=== PATIENT | female | born 1990 | race Caucasian/White ===

== ENCOUNTER 2019-02-27 02:03 | Emergency (ER) | payer SELFPAY ==
[~2019-02-27] VITALS: Ht 180.3 cm; Wt 86.2 kg
[~2019-02-27 02:03] MED LIST: HYDR-3063 PO
[2019-02-27] MEDS ORDERED: NS IV 1000 ML 1,000 ML IV SCH (02:07)
[2019-02-27] MEDS ORDERED: RT-ALBUTEROL SULF 2.5 MG/3 ML PRE-MIX VIAL INH STA (02:07)
[2019-02-27 02:17] LABS: BASOPHILS # (AUTO) 0.1 10^3/uL (0.0-0.1); BASOPHILS % (AUTO) 0 % (0-10); EOSINOPHILS # (AUTO) 0.5 10^3/uL (0.0-0.3); EOSINOPHILS % (AUTO) 4 % (0-10); HEMATOCRIT 41 % (35-52); LYMPHOCYTES # (AUTO) 4.6 X 10^3 (1.0-4.0); LYMPHOCYTES % (AUTO) 37 % (12-44); MEAN CORPUSCULAR HEMOGLOBIN 30 PG (25-34); MEAN CORPUSCULAR HGB CONC 34 G/DL (32-36); MEAN CORPUSCULAR VOLUME 88 FL (80-99); MEAN PLATELET VOLUME 11.5 FL (7.4-10.4); MONOCYTES # (AUTO) 1.2 X 10^3 (0.0-1.0); MONOCYTES % (AUTO) 10 % (0-12); NEUTROPHILS # (AUTO) 6.2 X 10^3 (1.8-7.8); NEUTROPHILS % (AUTO) 50 % (42-75); PLATELET COUNT 212 10^3/uL (130-400); RED CELL DISTRIBUTION WIDTH 13.5 % (10.0-14.5); WHITE BLOOD COUNT 12.5 10^3/uL (4.3-11.0)
--- NOTE | 2019-02-27 02:26 | ED Respiratory ---
General Chief Complaint: Respiratory Problems Stated Complaint: SOB Nursing Triage Note: Patient awoke from sleeping tonight feeling diaphoretic and experiencing difficulty breathing. Source: patient, EMS Exam Limitations: no limitations History of Present Illness Date Seen by Provider: Feb 27, 2019 Time Seen by Provider: 02:09 Initial Comments The patient presents to the ER by EMS with chief complaint that she was awoken tonight with shortness of breath wheezing coughing. For the Past week she's been having some respiratory symptoms and went to [facility] and was given Tessalon Perles and prednisone. He is not using the Tessalon Perles last 2 days because they do not help. She finished the prednisone with no improvement. She's had no fevers or chills and a nonproductive cough. No history of asthma/COPD although she is a half to one pack of cigarettes per day smoker. No pain. She was given a DuoNeb on route by EMS which greatly improved her breathing and breath sounds. Oxygen sats were in the mid-90s when EMS picked her up. She does have an implanted control in her left arm. 0205 Solu-Medrol 125 mg IV was given by EMS. Allergies and Home Medications Allergies Coded Allergies: Penicillins (Unverified Allergy, Unknown, HIVES, 12/22/14) Home Medications Hydrocodone Bit/Acetaminophen 1 Each Tablet, 1-2 EACH PO Q6H PRN for p Prescribed by: STEPHANIE WORRELL MD on 12/29/14 0985 Patient Home Medication List Home Medication List Reviewed: Yes Review of Systems Review of Systems Constitutional: No chills, No diaphoresis EENTM: No ear discharge, No hearing loss, No ear pain, No eye pain, No tearing Respiratory: cough, short of breath; No stridor; wheezing Cardiovascular: No chest pain, No edema, No palpitations Gastrointestinal: No abdominal pain, No nausea, No vomiting Genitourinary: No discharge, No dysuria Musculoskeletal: No back pain, No joint pain Past Leluued-Gghyrv-Qnwfwd Hx Patient Social History Alcohol Use: Denies Use Recreational Drug Use: No Smoking Status: Current Everyday Smoker Recent Foreign Travel: No Contact w/Someone Who Travel: No Recent Infectious Disease Expo: No Recent Hopitalizations: No Seasonal Allergies Seasonal Allergies: No Past Medical History Surgeries: Yes Orthopedic Respiratory: No Cardiac: No Neurological: No Reproductive Disorders: No Genitourinary: No Gastrointestinal: No Musculoskeletal: No Endocrine: No Loss of Vision: Left Hearing Impairment: Denies Cancer: No Psychosocial: No Integumentary: No Blood Disorders: No Physical Exam Vital Signs - First Documented 02/27/19 02:08 Temp 97.6 Pulse 95 Resp 14 B/P (MAP) 113/81 (92) Pulse Ox 100 O2 Delivery Room Air Capillary Refill : Less Than 3 Seconds Height: 5'11.00" Weight: 190lbs. oz. 86.807322tr; BMI Method:Stated General Appearance: WD/WN, no apparent distress Eyes: Bilateral Eye Normal Inspection, Bilateral Eye PERRL, Bilateral Eye EOMI HEENT: PERRL/EOMI, normal ENT inspection, TMs normal; No pharynx normal (mildly dry) Neck: non-tender, full range of motion, supple, normal inspection Respiratory: chest non-tender, no accessory muscle use, respiratory distress (mild) Cardiovascular: normal peripheral pulses (89), regular rate, rhythm, no edema Gastrointestinal: normal bowel sounds, non tender, soft Focused Exam Lactate Level 02/27/19 02:45: Lactic Acid Level 0.96 Lactic Acid Level Laboratory Tests Test 02/27/19 02:45 Lactic Acid Level 0.96 MMOL/L (0.50-2.00) Progress/Results/Core Measures Suspected Sepsis Recent Fever Within 48 Hours: No Infection Criteria Present: None New/Unexplained Altered Menta: No Sepsis Screen: No Definite Risk SIRS Temperature:97.6 Pulse: 95 Respiratory Rate: 14 Laboratory Tests 02/27/19 02:08: White Blood Count 12.5H Blood Pressure 113 /81 Mean: 92 02/27/19 02:45: Lactic Acid Level 0.96 Laboratory Tests 02/27/19 02:08: Creatinine 0.85, Platelet Count 212, Total Bilirubin 0.3 Results/Orders Lab Results Laboratory Tests Test 02/27/19 02:08 02/27/19 02:45 Range/Units White Blood Count 12.5 H 4.3-11.0 10^3/uL Red Blood Count 4.70 4.35-5.85 10^6/uL Hemoglobin 14.0 11.5-16.0 G/DL Hematocrit 41 35-52 % Mean Corpuscular Volume 88 80-99 FL Mean Corpuscular Hemoglobin 30 25-34 PG Mean Corpuscular Hemoglobin Concent 34 32-36 G/DL Red Cell Distribution Width 13.5 10.0-14.5 % Platelet Count 212 130-400 10^3/uL Mean Platelet Volume 11.5 H 7.4-10.4 FL Neutrophils (%) (Auto) 50 42-75 % Lymphocytes (%) (Auto) 37 12-44 % Monocytes (%) (Auto) 10 0-12 % Eosinophils (%) (Auto) 4 0-10 % Basophils (%) (Auto) 0 0-10 % Neutrophils # (Auto) 6.2 1.8-7.8 X 10^3 Lymphocytes # (Auto) 4.6 H 1.0-4.0 X 10^3 Monocytes # (Auto) 1.2 H 0.0-1.0 X 10^3 Eosinophils # (Auto) 0.5 H 0.0-0.3 10^3/uL Basophils # (Auto) 0.1 0.0-0.1 10^3/uL Sodium Level 140 135-145 MMOL/L Potassium Level 3.9 3.6-5.0 MMOL/L Chloride Level 107 98-107 MMOL/L Carbon Dioxide Level 21 21-32 MMOL/L Anion Gap 12 5-14 MMOL/L Blood Urea Nitrogen 12 7-18 MG/DL Creatinine 0.85 0.60-1.30 MG/DL Estimat Glomerular Filtration Rate > 60 BUN/Creatinine Ratio 14 Glucose Level 95 70-105 MG/DL Calcium Level 9.2 8.5-10.1 MG/DL Corrected Calcium 9.1 8.5-10.1 MG/DL Magnesium Level 2.0 1.8-2.4 MG/DL Total Bilirubin 0.3 0.1-1.0 MG/DL Aspartate Amino Transf (AST/SGOT) 18 5-34 U/L Alanine Aminotransferase (ALT/SGPT) 19 0-55 U/L Alkaline Phosphatase 62 40-136 U/L C-Reactive Protein High Sensitivity 1.06 H 0.00-0.50 MG/DL Total Protein 6.5 6.4-8.2 GM/DL Albumin 4.1 3.2-4.5 GM/DL Lactic Acid Level 0.96 0.50-2.00 MMOL/L My Orders Orders - STACIE ADDISON Chest Pa/Lat (2 View) (02/27/19 02:07) Cbc With Automated Diff (02/27/19 02:07) Comprehensive Metabolic Panel (02/27/19 02:07) Hs C Reactive Protein (02/27/19 02:07) Magnesium (02/27/19 02:07) Blood Culture (02/27/19 02:07) Sputum Culture (02/27/19 02:07) Ed Iv/Invasive Line Start (02/27/19 02:07) Ns Iv 1000 Ml (Sodium Chloride 0.9%) (02/27/19 02:07) Lactic Acid Analyzer (02/27/19 02:07) Albuterol Pre-Mix Nebs (Rt) (Proventil (02/27/19 02:07) Vital Signs/I&O 02/27/19 02/27/19 02:08 02:14 Temp 97.6 Pulse 95 Resp 14 B/P (MAP) 113/81 (92) Pulse Ox 100 97 O2 Delivery Room Air Room Air Capillary Refill : Less Than 3 Seconds Blood Pressure Mean: 92 Progress Note #1: Time: 02:24 Progress Note The patient is much improved after a DuoNeb based on report from EMS. We'll give her another 2.5 mg of albuterol get a 2 view chest x-ray labs, blood and sputum culture, lactate. Bronchitis versus pneumonia with reactive airway component. Progress Note #2: Time: 03:40 Progress Note The patient is feeling much better after breathing treatments. Plan to put the her on another course of steroids at some azithromycin for its anti-inflammatory properties and treat her outpatient for bronchitis. Diagnostic Imaging Diagonstic Imaging: Xray Plain Films/CT/US/NM/MRI: chest (2v) Comments No acute cardio pulmonary infiltrates or processes. Reviewed: Reviewed by Me Departure Impression Primary Impression: Bronchitis Disposition: 01 HOME, SELF-CARE Condition: Improved Departure-Patient Inst. Decision time for Depature: 03:40 Referrals: TOY JENKINS MD (PCP) Primary Care Physician Patient Instructions: Acute Bronchitis, Adult (DC) Add. Discharge Instructions: Drink plenty of fluids. If you have coughing wheezing or shortness of breath take 2 puffs of the albuterol through the spacer every 4 hours as needed. For the next week you should take 2 puffs of albuterol with a spacer every 6 hours [id number]. manager group the steroids and take one tablet twice a day with food. manager group the azithromycin and start taking 1 tablet daily for the next 4 days. Follow-up with your primary care doctor for reexamination in one week. All discharge instructions reviewed with patient and/or family. Voiced understanding. Scripts Azithromycin (Azithromycin) 250 Mg Tablet 250 MG PO DAILY, #4 TAB 0 Refills Prov: STACIE ADDISON 02/27/19 Prednisone (Prednisone) 20 Mg Tab 20 MG PO BID for 5 Days, #10 TAB 0 Refills Prov: STACIE ADDISON 02/27/19 Work/School Note: Work Release Form Date Seen in the Emergency Department: Feb 27, 2019 Return to Work: Feb 28, 2019 Restrictions: No Restrictions STACIE ADDISON Feb 27, 2019 02:26
[2019-02-27 02:35] LABS: ALANINE AMINOTRANSFERASE 19 U/L (0-55); ALBUMIN 4.1 GM/DL (3.2-4.5); ALKALINE PHOSPHATASE 62 U/L (40-136); BILIRUBIN,TOTAL 0.3 MG/DL (0.1-1.0); BUN/CREATININE RATIO 14; CALCIUM 9.2 MG/DL (8.5-10.1); CARBON DIOXIDE 21 MMOL/L (21-32); CHLORIDE 107 MMOL/L (98-107); CREATININE SERUM 0.85 MG/DL (0.60-1.30); GFR ESTIMATED > 60; GLUCOSE 95 MG/DL (70-105); POTASSIUM 3.9 MMOL/L (3.6-5.0); SODIUM 140 MMOL/L (135-145); TOTAL PROTEIN 6.5 GM/DL (6.4-8.2)
[2019-02-27] MEDS ORDERED: AZIT250T12 PO (03:42)
[2019-02-27] MEDS ORDERED: PRD20T PO (03:42)
[2019-02-27] MEDS ORDERED: predniSONE 20 MG TAB PO ONE (03:45)
[2019-02-27 03:48] VITALS: BP 102/55
--- NOTE | 2019-02-27 06:58 | Diagnostic Imaging Report ---
INDICATION: Shortness of air, cough and congestion. EXAMINATION: Two-view chest on 02/27/2019. COMPARISONS: None FINDINGS: The cardiomediastinal silhouette is unremarkable. The pulmonary vasculature is within normal limits. The lungs and pleural spaces are clear. IMPRESSION: No evidence of an acute cardiopulmonary process. Dictated by: Dictated on workstation # [id number]
== END 2019-02-27 04:00 | disposition home or self-care (01) ==
LOC: EDUNIT# 02:03 → MERGE 02:05 → UNMERGE 02:05 → ER 02:05
DX: J40 Bronchitis, not specified as acute or chronic (principal); F17.210 Nicotine dependence, cigarettes, uncomplicated; Z88.0 Allergy status to penicillin
CPT/HCPCS: 36415; 71046; 80053; 83605; 83735; 85025; 86141; 87040; 94640; 96360

== ENCOUNTER 2019-04-04 10:42 | Emergency (ER) | payer SELFPAY ==
[~2019-04-04] VITALS: Ht 165.1 cm; Wt 81.6 kg
[~2019-04-04 10:42] MED LIST changes: +AZIT250T12 PO; +PRD20T PO
[2019-04-04] MEDS ORDERED: methylPREDNISolone 125 MG (Solu-MEDROL) VIAL ONE (10:44)
[2019-04-04] MEDS ORDERED: RT-ALBUTEROL/IPRATROPIUM 3 ML (DUONEB) VIAL ONE (10:54)
[2019-04-04] MEDS ORDERED: RT-ALBUTEROL SULF 2.5 MG/3 ML PRE-MIX VIAL ONE ×2 (10:54→11:49)
[2019-04-04] MEDS ORDERED: NS IV 1000 ML 1,000 ML ONE ×2 (11:13→11:54)
[2019-04-04] MEDS ORDERED: PROPOFOL DRIP (ICU) 100 ML IV ONE (11:13)
[2019-04-04 11:16] LABS: ABG PCO2 > 115 MMHG (35-45); ABG PH 6.84 (7.37-7.43)
[2019-04-04 11:17] LABS: ABG PO2 187 MMHG (79-93); INSPIRED O2 15L; PATIENT TEMP 99.1; VENTILATOR YES
--- NOTE | 2019-04-04 11:21 | Diagnostic Imaging Report ---
INDICATION: Unresponsive. Time of exam: 11:10 AM No prior studies are available for comparison. The heart size is normal. Endotracheal tube has its tip in good position above the odilon. Lungs appear to be fairly clear. No failure is seen. No effusion or pneumothorax is identified. IMPRESSION: Satisfactory endotracheal tube placement. Dictated by: Dictated on workstation # [id number]
[2019-04-04 11:27] LABS: BASOPHILS # (AUTO) 0.2 10^3/uL (0.0-0.1); BASOPHILS % (AUTO) 1 % (0-10); EOSINOPHILS # (AUTO) 1.8 10^3/uL (0.0-0.3); EOSINOPHILS % (AUTO) 6 % (0-10); HEMATOCRIT 45 % (35-52); HEMOGLOBIN 13.6 G/DL (11.5-16.0); LYMPHOCYTES # (AUTO) 7.6 X 10^3 (1.0-4.0); LYMPHOCYTES % (AUTO) 23 % (12-44); MEAN CORPUSCULAR HEMOGLOBIN 30 PG (25-34); MEAN CORPUSCULAR HGB CONC 30 G/DL (32-36); MEAN CORPUSCULAR VOLUME 98 FL (80-99); MEAN PLATELET VOLUME 12.6 FL (7.4-10.4); MONOCYTES # (AUTO) 3.1 X 10^3 (0.0-1.0); MONOCYTES % (AUTO) 10 % (0-12); NEUTROPHILS # (AUTO) 19.5 X 10^3 (1.8-7.8); NEUTROPHILS % (AUTO) 60 % (42-75); PLATELET COUNT 271 10^3/uL (130-400); RED CELL DISTRIBUTION WIDTH 13.1 % (10.0-14.5); WHITE BLOOD COUNT 32.5 10^3/uL (4.3-11.0)
[2019-04-04] MEDS ORDERED: cefTRIAXone 1,000 MG IV (ROCEPHIN) VIAL ONE (11:28)
[2019-04-04 11:29] LABS: INR 1.1 (0.8-1.4); PROTHROMBIN TIME PATIENT 14.5 SEC (12.2-14.7)
[2019-04-04] MEDS ORDERED: NS (IVPB) 100 ML ONE (11:29)
--- NOTE | 2019-04-04 11:30 | NUR ---
[facility] declinded transfer, because they were already on transfer and had a call. [facility] requested that [facility] be contacted, before they accepted transfer. [facility] accepted transfer and would be here in 30 minutes.
[2019-04-04] MEDS ORDERED: KETAMINE HCL 100 MG/ML 5 ML VIAL IJ ONE (11:33)
[2019-04-04] MEDS ORDERED: ROCURONIUM 10 MG/ML 5 ML SYRINGE IV ONE ×2 (11:33→12:30)
[2019-04-04] MEDS ORDERED: SODIUM BICARB 8.4% 50 MEQ/50 ML (ABBOTT) SYR INJ ONE (11:33)
[2019-04-04 11:37] LABS: BAND NEUTROPHILS 6 %; BASOPHILS % (MANUAL) 0 %; EOSINOPHILS % (MANUAL) 5 %; LYMPHOCYTES % (MANUAL) 24 %; MONOCYTES % (MANUAL) 10 %; NEUTROPHILS % (MANUAL) 55 %; RBC MORPH NORMAL
[2019-04-04 11:47] LABS: CARBON DIOXIDE 19 MMOL/L (21-32); CHLORIDE 100 MMOL/L (98-107); POTASSIUM 5.5 MMOL/L (3.6-5.0); SODIUM 144 MMOL/L (135-145)
[2019-04-04 11:48] LABS: ALANINE AMINOTRANSFERASE 21 U/L (0-55); ALBUMIN 4.6 GM/DL (3.2-4.5); ALKALINE PHOSPHATASE 59 U/L (40-136); BILIRUBIN,TOTAL 0.4 MG/DL (0.1-1.0); BUN/CREATININE RATIO 10; CALCIUM 10.4 MG/DL (8.5-10.1); CREATININE SERUM 0.93 MG/DL (0.60-1.30); GFR ESTIMATED > 60; GLUCOSE 133 MG/DL (70-105); LIPASE 12 U/L (8-78); MAGNESIUM 2.4 MG/DL (1.8-2.4); TOTAL PROTEIN 7.5 GM/DL (6.4-8.2)
[2019-04-04 11:55] LABS: BILIRUBIN,URINE NEGATIVE (NEGATIVE); CLARITY,URINE CLEAR; COLOR,URINE YELLOW; GLUCOSE, URINE (UA) NEGATIVE (NEGATIVE); KETONES,URINE NEGATIVE (NEGATIVE); LEUKOCYTE ESTERASE ,URINE NEGATIVE (NEGATIVE); NITRITE,URINE NEGATIVE (NEGATIVE); PROTEIN,URINE NEGATIVE (NEGATIVE); SQUAMOUS EPITHELIAL CELL,UR RARE /HPF; UROBILINOGEN,URINE 0.2 MG/DL (NORMAL)
[2019-04-04] MEDS ORDERED: MAGNESIUM SULFATE 1 GM/2 ML VIAL ONE ×2 (11:55→11:56)
--- NOTE | 2019-04-04 11:55 | NUR ---
arrived and decided he wanted her to go to [facility] in [place], because of bad experiences in [place]. Dr. Burt decided he wanted to fly patient. [facility] was contacted about cancelling transfer, due to patient going to [facility].
[2019-04-04] MEDS ORDERED: MAGNESIUM 1 GM/100 ML IVPB 200 ML IV ONE (11:57)
--- NOTE | 2019-04-04 12:00 | NUR ---
[facility] was contacted. [facility] out of [place] was unable to respond. Asked if we wanted to contact [facility], I said yes. They said they could respond and had ETA of 28 minutes. I notified them if they could go ahead and respond. I notified her I would contact [facility] and see if they could be here quicker and she stated that is perfectly fine and if they could to contact her and she will cancel crew.
--- NOTE | 2019-04-04 12:03 | NUR ---
[facility] was contacted and accepted flight with ETA of 21 minutes. [facility] was called and cancelled.
[2019-04-04 12:06] LABS: HCG,QUALITATIVE URINE NEGATIVE (NEGATIVE)
--- NOTE | 2019-04-04 12:10 | ED General ---
General Chief Complaint: Unresponsive Stated Complaint: SOB Nursing Triage Note: PT BROUGHT IN BY POV AND GOT IN WHEELCHAIR. PTS LIPS WERE BLUE AND HER FACE WAS ASHY WITH OBVIOUS RESPIRATORY DISTRESS. PT STOPPED BREATHING WITHIN 30 SECONDS OF BEING PLACED ON THE COT. Nursing Sepsis Screen: Possible Sepsis Risk History of Present Illness Date Seen by Provider: Apr 04, 2019 Time Seen by Provider: 12:01 Initial Comments Patient brought in by friend in respiratory extremis says she is cyanotic and has respiratory rate at approximate 4. We started bagging the patient and hooked up to the monitor and O2 saturation was in the 40s. We were able to bag her up into the 90s. To get further information we had several classmates of the patient's come into the room and give us additional information. 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 She reported he had not been feeling well over the past several days w ith increased fatigue and cough and relayed that he actually did go to [facility] emergency department 3 or 4 days ago and received treatments but no steroids. While in class patient started coughing and became very short of breath to the point she turned blue and a classmate drove her here to the emergency department. Patient was intubated after getting her O2 saturations up into the upper 90s. She did seem to try an over breathe the bagging slightly however she could make no purposeful sounds or movements. She was intubated with ketamine and rocuronium. She was given steroids as well as IV fluids and started on propofol. I spoke to Dr. Barron of pulmonary at [facility] and he recommended giving 2 A of bicarbonate and giving antibiotics if she has leukocytosis. She was given 2 g of Rocephin and she does have a white count of 32. Dr. Barron also recommended I change her respiratory rate to 24 from 20 and in addition to increase her tidal volume to 440 from 400 as well as decrease her PEEP to 5 from 10. She is on an FiO2 of 100. She was also given magnesium. I had an accepting physician at [facility] with Dr. Gonzalez. However patient's arrived and stated that he would not allow her to go to [facility] as she was just in the emergency room there and he does not trust them. I tried explained to him that the closest facility would be the best and safest opportunity for complete recovery for her and I would not base his decision off of the emergency department care as there will be different physicians and specialists involved. He verbalized understanding of this fact but said that he would never have her go to [facility] and is refusing transferred to [facility] and requested that I transfer her to [facility] in [place]. I spoke to Dr. Anderson at [facility] and he agreed to accept patient in transfer. Allergies and Home Medications Allergies Coded Allergies: Penicillins (Verified Allergy, Unknown, HIVES, 04/04/19) Home Medications Azithromycin 250 Mg Tablet, 250 MG PO DAILY Prescribed by: STACIE ADDISON on 02/27/19 034 Hydrocodone Bit/Acetaminophen 1 Each Tablet, 1-2 EACH PO Q6H PRN for p Prescribed by: STEPHANIE WORRELL MD on 12/29/14 0925 Prednisone 20 Mg Tab, 20 MG PO BID Prescribed by: STACIE ADDISON on 02/27/19 034 Patient Home Medication List Home Medication List Reviewed: Yes Review of Systems Review of Systems Constitutional: no symptoms reported All Other Systems Reviewed Negative Unless Noted: Yes (can't obtain due to condition) Past Wzosonx-Zlhkoh-Iidezv Hx Patient Social History Alcohol Use: Denies Use Recreational Drug Use: No Smoking Status: Current Everyday Smoker Type Used: Cigarettes 2nd Hand Smoke Exposure: No Recent Foreign Travel: No Contact w/Someone Who Travel: No Recent Infectious Disease Expo: No Recent Hopitalizations: No Seasonal Allergies Seasonal Allergies: Yes Past Medical History Surgeries: Yes (KNEES BILAT) Orthopedic Respiratory: Yes ( REPORTS THEY WERE TOLD SHE HAS ALLERGIES/ASTHMA) Asthma Cardiac: No Neurological: No Genitourinary: No Gastrointestinal: No Musculoskeletal: No Endocrine: No HEENT: No Cancer: No Psychosocial: No Integumentary: No Blood Disorders: No Physical Exam Vital Signs Vital Signs - First Documented 04/04/19 10:45 Temp 99.1 Pulse 141 Resp 38 B/P (MAP) 162/114 (130) Pulse Ox 58 O2 Delivery Room Air Capillary Refill : Greater Than 3 Seconds Height, Weight, BMI Height: 5'5.00" Weight: 180lbs. oz. 81.556983ns; BMI Method:Actual General Appearance: Other (severe respiratory distress with bradycardic pulse, cyanotic) Eyes: Bilateral Eye Other (6mm and minimally reactive BL) HEENT: Other (airway patent) Neck: Supple Respiratory: Other (diminished breath sounds with wheezing in all lung ruiz) Cardiovascular: Bradycardia Gastrointestinal: Soft Rectal: Deferred Back: Normal Inspection Extremity: Slow Capillary Refill Neurologic/Psychiatric: Other (no ability to speak) Skin: Cyanosis, Other Procedures/Interventions Reason for Intubation: resp failure Intubation Method: orotracheal Medications: Rocuronium (and ketamine) Positive End Tide CO2: Yes Breath Sounds after Intubation: bilateral-equal Intubation Complications: no complications Post Intubation Xray: Yes Progress/Results/Core Measures Suspected Sepsis Recent Fever Within 48 Hours: No Infection Criteria Present: Suspected New Infection New/Unexplained Altered Menta: No Sepsis Screen: Possible Sepsis Risk SIRS Temperature:99.1 Pulse: 141 Respiratory Rate: 38 Laboratory Tests 04/04/19 11:05: White Blood Count 32.5*H Blood Pressure 162 /114 Mean: 130 Laboratory Tests 04/04/19 11:05: Creatinine 0.93, INR Comment 1.1, Platelet Count 271, Total Bilirubin 0.4 Results/Orders Lab Results Laboratory Tests Test 04/04/19 11:05 04/04/19 11:30 04/04/19 11:55 Range/Units White Blood Count 32.5 *H 4.3-11.0 10^3/uL Red Blood Count 4.57 4.35-5.85 10^6/uL Hemoglobin 13.6 11.5-16.0 G/DL Hematocrit 45 35-52 % Mean Corpuscular Volume 98 80-99 FL Mean Corpuscular Hemoglobin 30 25-34 PG Mean Corpuscular Hemoglobin Concent 30 L 32-36 G/DL Red Cell Distribution Width 13.1 10.0-14.5 % Platelet Count 271 130-400 10^3/uL Mean Platelet Volume 12.6 H 7.4-10.4 FL Neutrophils (%) (Auto) 60 42-75 % Lymphocytes (%) (Auto) 23 12-44 % Monocytes (%) (Auto) 10 0-12 % Eosinophils (%) (Auto) 6 0-10 % Basophils (%) (Auto) 1 0-10 % Neutrophils # (Auto) 19.5 H 1.8-7.8 X 10^3 Lymphocytes # (Auto) 7.6 H 1.0-4.0 X 10^3 Monocytes # (Auto) 3.1 H 0.0-1.0 X 10^3 Eosinophils # (Auto) 1.8 H 0.0-0.3 10^3/uL Basophils # (Auto) 0.2 H 0.0-0.1 10^3/uL Neutrophils % (Manual) 55 % Lymphocytes % (Manual) 24 % Monocytes % (Manual) 10 % Eosinophils % (Manual) 5 % Basophils % (Manual) 0 % Band Neutrophils 6 % Blood Morphology Comment NORMAL Prothrombin Time 14.5 12.2-14.7 SEC INR Comment 1.1 0.8-1.4 Activated Partial Thromboplast Time 25 24-35 SEC Blood Gas Puncture Site RT RAD Blood Gas Patient Temperature 99.1 Arterial Blood pH 6.84 *L 7.37-7.43 Arterial Blood Partial Pressure CO2 > 115 *H 35-45 MMHG Arterial Blood Partial Pressure O2 187 H 79-93 MMHG Arterial Blood HCO3 23-27 MMOL/L Arterial Blood Total CO2 21.0-31.0 MMOL/L Arterial Blood Oxygen Saturation 94-100 % Arterial Blood Base Excess -2.5-2.5 MMOL/L Facundo Test NA Blood Gas Ventilator Setting YES Blood Gas Inspired Oxygen 15L Sodium Level 144 135-145 MMOL/L Potassium Level 5.5 H 3.6-5.0 MMOL/L Chloride Level 100 98-107 MMOL/L Carbon Dioxide Level 19 L 21-32 MMOL/L Anion Gap 25 H 5-14 MMOL/L Blood Urea Nitrogen 9 7-18 MG/DL Creatinine 0.93 0.60-1.30 MG/DL Estimat Glomerular Filtration Rate > 60 BUN/Creatinine Ratio 10 Glucose Level 133 H 70-105 MG/DL Calcium Level 10.4 H 8.5-10.1 MG/DL Corrected Calcium 8.5-10.1 MG/DL Magnesium Level 2.4 1.8-2.4 MG/DL Total Bilirubin 0.4 0.1-1.0 MG/DL Aspartate Amino Transf (AST/SGOT) 30 5-34 U/L Alanine Aminotransferase (ALT/SGPT) 21 0-55 U/L Alkaline Phosphatase 59 40-136 U/L Troponin I < 0.30 <0.30 NG/ML Pro-B-Type Natriuretic Peptide 302.6 H <75.0 PG/ML Total Protein 7.5 6.4-8.2 GM/DL Albumin 4.6 H 3.2-4.5 GM/DL Lipase 12 8-78 U/L Serum Alcohol < 10 <10 MG/DL Urine Color YELLOW Urine Clarity CLEAR Urine pH 6.0 5-9 Urine Specific [place] 1.010 L 1.016-1.022 Urine Protein NEGATIVE NEGATIVE Urine Glucose (UA) NEGATIVE NEGATIVE Urine Ketones NEGATIVE NEGATIVE Urine Nitrite NEGATIVE NEGATIVE Urine Bilirubin NEGATIVE NEGATIVE Urine Urobilinogen 0.2 NORMAL MG/DL Urine Leukocyte Esterase NEGATIVE NEGATIVE Urine RBC (Auto) NEGATIVE NEGATIVE Urine RBC NONE /HPF Urine WBC NONE /HPF Urine Squamous Epithelial Cells RARE /HPF Urine Crystals NONE /LPF Urine Bacteria NONE /HPF Urine Casts NONE /LPF Urine Mucus NEGATIVE /LPF Urine Culture Indicated NO My Orders Orders - KAREN JIANG DO Methylprednisolone Sod Succ (Solu-Medrol (04/04/19 10:44) Albuterol/Ipra Inhalation Soln (Duoneb I (04/04/19 10:54) Albuterol Pre-Mix Nebs (Rt) (Proventil (04/04/19 10:54) Chest 1 View Ap/Pa Only (04/04/19 11:02) Ekg Tracing (04/04/19 11:02) Alcohol (04/04/19 11:02) Blood Culture (04/04/19 11:02) Cbc With Automated Diff (04/04/19 11:02) Comprehensive Metabolic Panel (04/04/19 11:02) Drug Screen Stat (Urine) (04/04/19 11:02) Hcg,Qualitative Urine (04/04/19 11:02) Lactic Acid Analyzer (04/04/19 11:02) Magnesium (04/04/19 11:02) Lipase (04/04/19 11:02) Partial Thromboplastin Time (04/04/19 11:02) Probnp Fs (04/04/19 11:02) Protime With Inr (04/04/19 11:02) Troponin I (04/04/19 11:02) Ua Culture If Indicated (04/04/19 11:02) Arterial Blood Gas (04/04/19 11:02) Ns Iv 1000 Ml (Sodium Chloride 0.9%) (04/04/19 11:13) Propofol Drip (Icu) (Diprivan Drip (Icu) (04/04/19 11:13) Manual Differential (04/04/19 11:05) Ceftriaxone For Iv Use (Rocephin For I (04/04/19 11:28) Ns (Ivpb) (Sodium Chloride 0.9% Ivpb Bag (04/04/19 11:29) Abdomen/Kub 1view (04/04/19 11:39) Abdomen/Kub 1view (04/04/19 11:48) Abdomen (Kub) 1 View (04/04/19 ) Albuterol Pre-Mix Nebs (Rt) (Proventil (04/04/19 11:49) Vital Signs/I&O 04/04/19 10:45 Temp 99.1 Pulse 141 Resp 38 B/P (MAP) 162/114 (130) Pulse Ox 58 O2 Delivery Room Air Capillary Refill : Greater Than 3 Seconds Blood Pressure Mean: 130 Progress Note : Progress Note As above patient is critically ill and I resuscitated her to the best of my abilities with steroids magnesium low tidal volume with increased respiratory rate on the ventilator. I explained that she is critically ill and I cannot tell him if she will make a full recovery or not but she will be treated to the Best of everybodies capabilities. Patient will be flown to [facility] in critical condition. Critical care time of 95 mins including speaking to family living educator and enraging 2 different transfers Critical Care Note Critical Care Total Time (minutes) 95 Departure Impression Primary Impression: Status asthmaticus Qualified Codes: J45.52 - Severe persistent asthma with status asthmaticus Additional Impressions: Respiratory failure Acidosis Leukocytosis (leucocytosis) Disposition: 02 XFER SHT-TRM HOSP Condition: Critical Transfer Method of Transfer: EMS KAREN JIANG DO Apr 04, 2019 12:10
[2019-04-04 12:14] LABS: AMPHETAMINE SCREEN, URINE POSITIVE (NEGATIVE); BARBITURATE SCREEN URINE NEGATIVE (NEGATIVE); BENZODIAZEPINES SCREEN URINE NEGATIVE (NEGATIVE); CANNABINOID SCREEN, URINE NEGATIVE (NEGATIVE); COCAINE SCREEN URINE NEGATIVE (NEGATIVE); METHADONE STAT NEGATIVE (NEGATIVE); METHAMPHETAMINE SCREEN URINE S NEGATIVE (NEGATIVE); OPIATE SCREEN URINE NEGATIVE (NEGATIVE); OXYCODONE STAT NEGATIVE (NEGATIVE); PROPOXYPHENE STAT NEGATIVE (NEGATIVE); TRICYCLIC ANTIDEPRESSANTS SCRE NEGATIVE (NEGATIVE)
--- NOTE | 2019-04-04 12:19 | NUR ---
Facesheet was sent Jacques at this time (sent to [phone]).
[2019-04-04] MEDS ORDERED: SODIUM BICARB 8.4% 50 MEQ/50 ML VIAL IV ONE (12:30)
[2019-04-04] MEDS ORDERED: KETAMINE/NaCl 50 MG/5 ML SYRINGE IV ONE (12:30)
[2019-04-04 12:58] VITALS: BP 124/80
--- NOTE | 2019-04-04 13:11 | NUR ---
REPORT GIVEN TO KATTY LAMAR AT [facility] RM 263. [phone]
--- OUTSIDE RECORDS SUMMARY | 2019-04-04 13:15 | XMS REPORT ---
Author Author SHITAL FOSTER [facility] Address [address] [place] [address] Care Team Providers Care Commissary Helper Name Role Phone SHITAL FOSTER Unavailable PROBLEMS Type Condition ICD9-CM Code [id number] Code Onset Dates Condition Status SNOMED Code Problem ADHD, predominantly inattentive type F90.0 Active 53899439 Problem Asthma exacerbation J45.901 Active 604775791 ALLERGIES No Information ENCOUNTERS Encounter Location Date Diagnosis [place] [address] [address] Aug, [place] [address] [address] Jul, ADHD, predominantly inattentive type F90.0 [facility] [id number] [place] [address] Jul, ADHD, predominantly inattentive type F90.0 [place] [address] [place] [id number] [place] [address] May, ADHD, predominantly inattentive type F90.0 and Encounter for immunization Z23 [facility] [id number] [place] [address] Apr, ADHD, predominantly inattentive type F90.0 [place] [address] [address] Mar, ADHD, predominantly inattentive type F90.0 [place] [address] [address] Mar, Visit for TB skin test Z11.1 [place] [address] [address] Mar, ADHD, predominantly inattentive type F90.0 [facility] [address] [place] [address] Mar, ADHD, predominantly inattentive type F90.0 [facility] [id number] [place] [address] Feb, Asthma exacerbation J45.901 and ADHD, predominantly inattentive type F90.0 [facility] [id number] [place] [address] Nov, Wheezing R06.2 and Acute nasopharyngitis J00 [facility] [id number] [place] [id number] Jul, Dental caries K02.9 [place] [address] [place] [id number] [place] [address] Jul, [facility] [id number] [place] [address] Jul, Dental examination Z01.20 [facility] [id number] [place] [address] Jul, Dental infection K04.7 [facility] [id number] [place] [address] Jun, Pharyngitis due to other organism [address]02.[address] [id number] [place] [address] May, [facility] [address] [place] [address] May, ADHD, predominantly inattentive type F90.0 [facility] [id number] [place] [address] Apr, Asthma exacerbation J45.901 [facility] [id number] [place] [address] Apr, Encounter for immunization Z23 [place] [address] [id number] [address] Jan, Encounter for immunization Z23 ; Visit for TB skin test Z11.1 and Physical exam Z00.00 [facility] [address] [place] [id number], [place] [address] Jul, Encounter for Nexplanon removal Z30.46 and Insertion of Nexplanon Z30.017 [facility] [address] [id number] [id number] Oct, Dental examination Z01.20 [facility] [address] [address] [id number] [id number] May, [place] [address] [facility] [id number] [address] May, IMMUNIZATIONS No Known Immunizations SOCIAL HISTORY Never Assessed REASON FOR VISIT Corected Sig PLAN OF CARE VITAL SIGNS MEDICATIONS Medication Instructions Dosage Frequency Start Date End Date Duration Status Methylphenidate HCl ER 18 mg Orally Twice a day 1 tablet 12h 10 Jul, 2018 28 days Active RESULTS No Results PROCEDURES No Known procedures INSTRUCTIONS MEDICATIONS ADMINISTERED No Known Medications MEDICAL (GENERAL) HISTORY Type Description Date Surgical History right knee arthroscopy Surgical History left knee arthroscopy
--- OUTSIDE RECORDS SUMMARY | 2019-04-04 13:15 | XMS REPORT ---
Author Author MALINDA SHABAZZ Organization [facility] Address [address] [place] [address] Care Team Providers Care Automatic Screwmaker Name Role Phone MIGUELITO SHABAZZTA Unavailable PROBLEMS Type Condition ICD9-CM Code SPC73-WX Code Onset Dates Condition Status SNOMED Code Problem ADHD, predominantly inattentive type F90.0 Active 48917714 Problem Asthma exacerbation J45.901 Active 931959384 ALLERGIES No Information ENCOUNTERS Encounter Location Date Diagnosis [facility] [address] [address] Apr, ADHD, predominantly inattentive type F90.0 [facility] [address] [address] Mar, ADHD, predominantly inattentive type F90.0 [facility] [address] [address] Mar, Visit for TB skin test Z11.1 [facility] [address] [address] Mar, ADHD, predominantly inattentive type F90.0 [facility] [address] [address] Mar, ADHD, predominantly inattentive type F90.0 [facility] [address] [address] Feb, Asthma exacerbation J45.901 and ADHD, predominantly inattentive type F90.0 [facility] [address] [address] Nov, Wheezing R06.2 and Acute nasopharyngitis J00 [facility] [address] [id number] Jul, Dental caries K02.9 [facility] [address], [place] [address] Jul, [facility] [address] [place] [address] Jul, Dental examination Z01.20 [facility] [address] [place] [address] Jul, Dental infection K04.7 [facility] [address], [place] [address] Jun, Pharyngitis due to other organism J02.8 [place] [address] [id number] [place] [address] May, [place] [address] [place] [address] May, ADHD, predominantly inattentive type F90.0 [facility] [address], [place] [address] Apr, Asthma exacerbation J45.901 [place] [address] [place] [id number] [place] [address] Apr, Encounter for immunization Z23 [place] [address] [place] [address] Jan, Encounter for immunization Z23 ; Visit for TB skin test Z11.1 and Physical exam Z00.00 [facility] [address], [place] [address] Jul, Encounter for Nexplanon removal Z30.46 and Insertion of Nexplanon Z30.017 [facility] [address] [id number] Oct, Dental examination Z01.20 [facility] [id number] [id number] May, [facility] [address] [address] May, IMMUNIZATIONS No Known Immunizations SOCIAL HISTORY Never Assessed REASON FOR VISIT Requests return call PLAN OF CARE VITAL SIGNS MEDICATIONS Medication Instructions Dosage Frequency Start Date End Date Duration Status Concerta 18 mg Orally Once a day 1 tablet in the morning 24h Apr, May, 28 days Active RESULTS No Results PROCEDURES No Known procedures INSTRUCTIONS MEDICATIONS ADMINISTERED No Known Medications MEDICAL (GENERAL) HISTORY Type Description Date Surgical History right knee arthroscopy Surgical History left knee arthroscopy
--- OUTSIDE RECORDS SUMMARY | 2019-04-04 13:15 | XMS REPORT ---
Author Author MALINDA SHABAZZ [facility] Address [address] [place] [address] Care Team Providers Care Napkin Machine Operator Name Role Phone MIGUELITO SHABAZZTA Unavailable PROBLEMS Type Condition ICD9-CM Code HAW10-FL Code Onset Dates Condition Status SNOMED Code Problem ADHD, predominantly inattentive type F90.0 Active 49115174 Problem Asthma exacerbation J45.901 Active 382841688 ALLERGIES Substance Reaction Event Type Date Status Penicillin V Potassium hives Drug Allergy Jul, Active ENCOUNTERS Encounter Location Date Diagnosis [place] [address] [place] [id number] [place] [address] Aug, [facility] [id number] [place] [address] Jul, ADHD, predominantly inattentive type F90.0 [facility] [address] [place] [address] [id number] [place] [address] Jul, ADHD, predominantly inattentive type F90.0 [place] [address] [place] [id number] [place] [address] May, ADHD, predominantly inattentive 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 and Encounter for immunization Z23 [facility] [address] [id number] [place] [address] Apr, ADHD, predominantly inattentive type F90.0 [place] [address] [place] [id number] [place] [address] Mar, ADHD, predominantly inattentive type F90.0 [place] [address] [place] [id number] [place] [address] Mar, Visit for TB skin test Z11.1 [facility] [address] [id number] [place] [address] Mar, ADHD, predominantly inattentive type F90.0 [facility] [address] [place] [address] Mar, ADHD, predominantly inattentive type F90.0 [facility] [address] [place] [address] Feb, Asthma exacerbation J45.901 and ADHD, predominantly inattentive type F90.0 [facility] [address] [place] [address] Nov, Wheezing R06.2 and Acute nasopharyngitis J00 [facility] [id number] [place] [id number] Jul, Dental caries K02.9 [facility] [address] [address] [id number] [place] [address] Jul, [facility] [address] [place] [address] [id number] [place] [address] Jul, Dental examination Z01.20 [facility] [address] [id number] [place] [address] Jul, Dental infection K04.7 [facility] [address] [place] [address] Jun, Pharyngitis due to other organism J02.8 [facility] Marlen ADAMEE [id number] [place] [address] May, [facility] [address] [place] [address] May, ADHD, predominantly inattentive type F90.0 [facility] [address] [place] [address] Apr, Asthma exacerbation J45.901 [facility] [address] [place] [address] Apr, Encounter for immunization Z23 [facility] [address] [facility] [id number] [address] Jan, Encounter for immunization Z23 ; Visit for TB skin test Z11.1 and Physical exam Z00.00 [facility] [address] [id number], [place] [address] Jul, Encounter for Nexplanon removal Z30.46 and Insertion of Nexplanon Z30.017 [facility] [address] [id number] [address] Oct, Dental examination Z01.20 [facility] [id number] [phone] May, [facility] [address], [place] [address] May, IMMUNIZATIONS No Known Immunizations SOCIAL HISTORY Never Assessed REASON FOR VISIT meds f/u Kira Rosenthal MA PLAN OF CARE Activity Details Follow Up 4 Weeks Reason:ADHD VITAL SIGNS Height 70.5 in 2018-07-29 Weight 207.3 lbs 2018-07-29 Temperature 97.8 degrees Fahrenheit 2018-07-29 Heart Rate 69 bpm 2018-07-29 Respiratory Rate 20 2018-07-29 BMI 29.32 kg/m2 2018-07-29 Blood pressure systolic 118 mmHg 2018-07-29 Blood pressure diastolic 68 mmHg 2018-07-29 MEDICATIONS Medication Instructions Dosage Frequency Start Date End Date Duration Status ProAir HFA 108 (90 Base) MCG/ACT Inhalation every 6 hrs 2 puffs as needed 6h 25 Active Singulair 10 MG Orally Once a day 1 tablet in the evening 24h Active Nexplanon 68 MG Subcutaneous placed 07/25/2016 as directed Jul, Active Fexofenadine HCl 180 MG Orally Once a day 1 tablet as needed 24h May, Sep, 30 day(s) Active Methylphenidate HCl ER 18 MG Orally 2 times a day as needed 1 tablet in the morning Jul, 28 days Active RESULTS No Results PROCEDURES No Known procedures INSTRUCTIONS MEDICATIONS ADMINISTERED No Known Medications MEDICAL (GENERAL) HISTORY Type Description Date Surgical History right knee arthroscopy Surgical History left knee arthroscopy
--- OUTSIDE RECORDS SUMMARY | 2019-04-04 13:16 | XMS REPORT ---
Author Author MALINDA SHABAZZ Organization [facility] Address [address] [place] [address] Care Team Providers Care Chief Supply Chain Officer Name Role Phone MIGUELITO SHABAZZTA Unavailable PROBLEMS Type Condition ICD9-CM Code CCP04-CE Code Onset Dates Condition Status SNOMED Code Problem ADHD, predominantly inattentive type F90.0 Active 13830079 Problem Asthma exacerbation J45.901 Active 762683841 ALLERGIES No Information ENCOUNTERS Encounter Location Date Diagnosis [facility] [address] [address] Apr, ADHD, predominantly inattentive type F90.0 [facility] [address] [address] Mar, ADHD, predominantly inattentive type F90.0 [facility] [address] [address] Mar, Visit for TB skin test Z11.1 [facility] [address] [address] Mar, ADHD, predominantly inattentive type F90.0 [facility] [address] [address] Mar, ADHD, predominantly inattentive type F90.0 [facility] [address] [address] Feb, Asthma exacerbation J45.901 and ADHD, predominantly inattentive type F90.0 [facility] [address] [address] Nov, Wheezing R06.2 and Acute nasopharyngitis J00 [facility] [address] [id number] Jul, Dental caries K02.9 [facility] [address]005[address]100[place], [place] [address] Jul, [facility] [address] [place] [address] Jul, Dental examination Z01.20 [facility] [address] [place] [address] Jul, Dental infection K04.7 [facility] [address]100[place], [place] [address] Jun, Pharyngitis due to other organism J02.8 [place] [address] [address] [id number] [place] [address] May, [place] [address] [place] [address] May, ADHD, predominantly inattentive type F90.0 [facility] [address], [place] [address] Apr, Asthma exacerbation J45.901 [place] [address] [place] [id number] [place] [address] Apr, Encounter for immunization Z23 [place] [address] [place] [address] Jan, Encounter for immunization Z23 ; Visit for TB skin test Z11.1 and Physical exam Z00.00 [facility] [address], [place] [address] Jul, Encounter for Nexplanon removal Z30.46 and Insertion of Nexplanon Z30.017 [facility] [address] [address] Oct, Dental examination Z01.20 [facility] [id number] [phone] May, [facility] [address] [address] 17 May, 2012 IMMUNIZATIONS No Known Immunizations SOCIAL HISTORY Never Assessed REASON FOR VISIT Lab (walk-in) PLAN OF CARE VITAL SIGNS MEDICATIONS Unknown Medications RESULTS No Results PROCEDURES No Known procedures INSTRUCTIONS MEDICATIONS ADMINISTERED No Known Medications MEDICAL (GENERAL) HISTORY Type Description Date Surgical History right knee arthroscopy Surgical History left knee arthroscopy
--- OUTSIDE RECORDS SUMMARY | 2019-04-04 13:16 | XMS REPORT ---
Author Author MALINDA SHABAZZ Organization [facility] Address [address] [place] [address] Care Team Providers Care Epic Beacon Analyst Name Role Phone MIGUELITO SHABAZZTA Unavailable PROBLEMS Type Condition ICD9-CM Code CKA19-YD Code Onset Dates Condition Status SNOMED Code Problem ADHD, predominantly inattentive type F90.0 Active 74303179 Problem Asthma exacerbation J45.901 Active 713209484 ALLERGIES No Information ENCOUNTERS Encounter Location Date Diagnosis [facility] [address] [address] Apr, ADHD, predominantly inattentive type F90.0 [facility] [address] [address] Mar, ADHD, predominantly inattentive type F90.0 [facility] [address] [address] Mar, Visit for TB skin test Z11.1 [facility] [address] [address] Mar, ADHD, predominantly inattentive type F90.0 [facility] [address] [address] Mar, ADHD, predominantly inattentive type F90.0 [facility] [address] [address] Feb, Asthma exacerbation J45.901 and ADHD, predominantly inattentive type F90.0 [facility] [address] [address] Nov, Wheezing R06.2 and Acute nasopharyngitis J00 [facility] [address] [id number] Jul, Dental caries K02.9 [facility] [address], [place] [address] Jul, [facility] [address] [place] [address] Jul, Dental examination Z01.20 [facility] [address] [place] [address] Jul, Dental infection K04.7 [facility] [address], [place] [address] Jun, Pharyngitis due to other organism J02.8 [place] [address] [address] [id number] [place] [address] May, [place] [address] [place] [address] May, ADHD, predominantly inattentive type F90.0 [facility] [address]005[address]100[place], [place] [address] Apr, Asthma exacerbation J45.901 [place] [id number] [place] [address] Apr, Encounter for immunization Z23 [place] [address] [place] [address] Jan, Encounter for immunization Z23 ; Visit for TB skin test Z11.1 and Physical exam Z00.00 [facility] [address], [place] [address] Jul, Encounter for Nexplanon removal Z30.46 and Insertion of Nexplanon Z30.017 [facility] [address], [place] [address] Oct, Dental examination Z01.20 [facility] [id number] [id number] May, [facility] [address] [address] May, IMMUNIZATIONS No Known Immunizations SOCIAL HISTORY Never Assessed REASON FOR VISIT Controlled Med Refill PLAN OF CARE VITAL SIGNS MEDICATIONS Medication Instructions Dosage Frequency Start Date End Date Duration Status Vyvanse 40 mg Orally Once a day 1 capsule in the morning 24h Mar, 28 days Active RESULTS No Results PROCEDURES No Known procedures INSTRUCTIONS MEDICATIONS ADMINISTERED No Known Medications MEDICAL (GENERAL) HISTORY Type Description Date Surgical History right knee arthroscopy Surgical History left knee arthroscopy
--- OUTSIDE RECORDS SUMMARY | 2019-04-04 13:16 | XMS REPORT ---
Author Author MARIETTA ORLANDO Organization [facility] Address [address] [place] [address] Care Team Providers Care Clerical Assigner Name Role Phone DARION MARIETTA Unavailable PROBLEMS Type Condition ICD9-CM Code DFN95-UQ Code Onset Dates Condition Status SNOMED Code Problem ADHD, predominantly inattentive type F90.0 Active 36791391 Problem Asthma exacerbation J45.901 Active 258807190 ALLERGIES No Information ENCOUNTERS Encounter Location Date Diagnosis [facility] [address] [address] Nov, Wheezing R06.2 and Acute nasopharyngitis J00 [facility] [address] [id number] Jul, Dental caries K02.9 [place] [address] [address] Jul, [place] [address] [address] Jul, Dental examination Z01.20 [facility] [address] [address] Jul, Dental infection K04.7 [facility] [address] [address] Jun, Pharyngitis due to other organism J02.8 [facility] [address] [id number] [address] May, [facility] [address] [address] May, ADHD, predominantly inattentive type F90.0 [facility] [id number] [place] [address] Apr, Asthma exacerbation J45.901 [place] [address], [place] [address] Apr, Encounter for immunization Z23 [place] [address] [place] [address] Jan, Encounter for immunization Z23 ; Visit for TB skin test Z11.1 and Physical exam Z00.00 [place] [address], [place] [address] Jul, Encounter for Nexplanon removal Z30.46 and Insertion of Nexplanon Z30.017 [facility] [address] [address] Oct, Dental examination Z01.20 [facility] [id number][place] [id number] May, [place] [address] [place] [address] [id number], [place] [address] May, IMMUNIZATIONS No Known Immunizations SOCIAL HISTORY Never Assessed REASON FOR VISIT PLAN OF CARE VITAL SIGNS MEDICATIONS No Known Medications RESULTS No Results PROCEDURES No Known procedures INSTRUCTIONS MEDICATIONS ADMINISTERED No Known Medications MEDICAL (GENERAL) HISTORY Type Description Date Surgical History right knee arthroscopy Surgical History left knee arthroscopy
--- OUTSIDE RECORDS SUMMARY | 2019-04-04 13:16 | XMS REPORT ---
Author Author DAKSHA BALTAZAR [facility] Address [address] [place] [address] Care Team Providers Care Manager Software Name Role Phone DAKSHA BALTAZAR Unavailable PROBLEMS Type Condition ICD9-CM Code AGL90-XM Code Onset Dates Condition Status SNOMED Code Problem ADHD, predominantly inattentive type F90.0 Active 85957334 Problem Asthma exacerbation J45.901 Active 333204909 ALLERGIES Substance Reaction Event Type Date Status Penicillin V Potassium hives Drug Allergy Nov, Active ENCOUNTERS Encounter Location Date Diagnosis [facility] [id number] [place] [address] Feb, Asthma exacerbation J45.901 and ADHD, predominantly inattentive type F90.0 [facility] [id number] [place] [address] Nov, Wheezing R06.2 and Acute nasopharyngitis J00 [facility] [id number] [place] [phone] Jul, Dental caries K02.9 [facility] [id number] [place] [address] Jul, [facility] [id number] [place] [phone] Jul, Dental examination Z01.20 [facility] [id number] [place] [phone] Jul, Dental infection K04.7 [facility] [id number] [place] [phone] Jun, Pharyngitis due to other organism J02.8 [facility] [address] [id number] [place] [address] 09 May, 2017 [facility] [address] [place] [phone] May, ADHD, predominantly inattentive type F90.0 [facility] [address] [address] Apr, Asthma exacerbation J45.901 [place] [id number] [place] [phone] Apr, Encounter for immunization Z23 [place] [id number] [place] [phone] Jan, Encounter for immunization Z23 ; Visit for TB skin test Z11.1 and Physical exam Z00.00 [place] [id number] [place] [phone] Jul, Encounter for Nexplanon removal Z30.46 and Insertion of Nexplanon Z30.017 [facility] [address] [place] [phone] Oct, Dental examination Z01.20 [facility] [id number] [place] [phone] May, [facility] [address] [place] [phone] May, IMMUNIZATIONS No Known Immunizations SOCIAL HISTORY Never Assessed REASON FOR VISIT productive cough that has greenish-yellow tinged color to it, chest congestion f or 5 days. [email or web address] PLAN OF CARE Activity Details Follow Up prn Reason: VITAL SIGNS Height 70.5 in 2017-11-22 Weight 197.0 lbs 2017-11-22 Temperature 97.5 degrees Fahrenheit 2017-11-22 Heart Rate 82 bpm 2017-11-22 Respiratory Rate 20 2017-11-22 BMI 27.86 kg/m2 2017-11-22 Blood pressure systolic 118 mmHg 2017-11-22 Blood pressure diastolic 74 mmHg 2017-11-22 MEDICATIONS Medication Instructions Dosage Frequency Start Date End Date Duration Status ProAir HFA 108 (90 Base) MCG/ACT Inhalation every 6 hrs 2 puffs as needed 6h Nov, 30 days Active Singulair 10 MG Orally Once a day 1 tablet in the evening 24h Active PredniSONE 20 MG Orally Once a day 2 tablets 24h Nov, Nov, 5 days Active Vyvanse 20 MG Orally Once a day 1 capsule in the morning 24h Active Claritin 10 MG Orally Once a day 1 tablet 24h Active Nexplanon 68 MG Subcutaneous placed 07/25/2016 as directed Jul, Active [place] 5-325 MG Orally every 6 hrs 1 tablet as needed 6h 4 days Not-Taking Promethazine-Codeine 6.25-10 MG/5ML Orally every 6 hrs 5 ml as needed 6h Jun, Not-Taking ProAir HFA 108 (90 Base) MCG/ACT Inhalation 4 times a day 2 puffs as needed 6h Apr, Active RESULTS No Results PROCEDURES No Known procedures INSTRUCTIONS MEDICATIONS ADMINISTERED No Known Medications MEDICAL (GENERAL) HISTORY Type Description Date Surgical History right knee arthroscopy Surgical History left knee arthroscopy
--- OUTSIDE RECORDS SUMMARY | 2019-04-04 13:16 | XMS REPORT ---
Author Author MALINDA SHABAZZ Organization [facility] Address [address] [place] [address] Care Team Providers Care Early Childhood Director Name Role Phone MIGUELITO SHABAZZTA Unavailable PROBLEMS Type Condition ICD9-CM Code QCW40-IY Code Onset Dates Condition Status SNOMED Code Problem ADHD, predominantly inattentive type F90.0 Active 83003679 Problem Asthma exacerbation J45.901 Active 283130581 ALLERGIES No Information ENCOUNTERS Encounter Location Date Diagnosis [facility] [address] [address] Apr, ADHD, predominantly inattentive type F90.0 [facility] [address] [address] Mar, ADHD, predominantly inattentive type F90.0 [facility] [address] [address] Mar, Visit for TB skin test Z11.1 [facility] [address] [address] Mar, ADHD, predominantly inattentive type F90.0 [facility] [address] [address] Mar, ADHD, predominantly inattentive type F90.0 [facility] [address] [address] Feb, Asthma exacerbation J45.901 and ADHD, predominantly inattentive type F90.0 [facility] [address] [address] Nov, Wheezing R06.2 and Acute nasopharyngitis J00 [facility] [address] [phone] Jul, Dental caries K02.9 [facility] [address] [address] Jul, [facility] [address] [place] [address] Jul, Dental examination Z01.20 [facility] [address] [place] [address] Jul, Dental infection K04.7 [facility] [address] [address] Jun, Pharyngitis due to other organism J02.8 [place] [address] [id number] [address] May, [place] [address] [place] [address] May, ADHD, predominantly inattentive type F90.0 [facility] [address] [address] Apr, Asthma exacerbation J45.901 [place] [id number] [place] [address] Apr, Encounter for immunization Z23 [place] [address] [place] [phone] Jan, Encounter for immunization Z23 ; Visit for TB skin test Z11.1 and Physical exam Z00.00 [facility] [address], [place] [address] Jul, Encounter for Nexplanon removal Z30.46 and Insertion of Nexplanon Z30.017 [facility] [address] [phone] Oct, Dental examination Z01.20 [facility] [id number] [phone] May, [facility] [address] [address] 17 May, 2012 IMMUNIZATIONS No Known Immunizations SOCIAL HISTORY Never Assessed REASON FOR VISIT TB skin test PLAN OF CARE Activity Details Follow Up 48-72 hours Reason: VITAL SIGNS MEDICATIONS Unknown Medications RESULTS No Results PROCEDURES Procedure Date Ordered Result Body Site TB INTRADERMAL 2018-04-05 N/A TB INTRADERMAL TEST Apr 05, 2018 INSTRUCTIONS MEDICATIONS ADMINISTERED No Known Medications MEDICAL (GENERAL) HISTORY Type Description Date Surgical History right knee arthroscopy Surgical History left knee arthroscopy
--- OUTSIDE RECORDS SUMMARY | 2019-04-04 13:16 | XMS REPORT ---
Author Author LI MUJICA [facility] Address Unknown Care Team Providers Care Utilities Manager Name Role Phone LI MUJICA Unavailable PROBLEMS Type Condition ICD9-CM Code KLL52-PF Code Onset Dates Condition Status SNOMED Code Problem ADHD, predominantly inattentive type F90.0 Active 55463424 Problem Asthma exacerbation J45.901 Active 897674266 ALLERGIES Substance Reaction Event Type Date Status Penicillin V Potassium hives Drug Allergy Jul, Active ENCOUNTERS Encounter Location Date Diagnosis [facility] [id number] [place] [address] Nov, Wheezing R06.2 and Acute nasopharyngitis J00 [facility] [id number] [place] [phone] Jul, Dental caries K02.9 [place] [id number] [place] [address] Jul, [facility] [id number] [place] [address] Jul, Dental examination Z01.20 [facility] [id number] [place] [address] Jul, Dental infection K04.7 [facility] [id number] [place] [address] Jun, Pharyngitis due to other organism J02.8 [facility] [address] [id number] [place] [address] May, [facility] [id number] [place] [address] May, ADHD, predominantly inattentive type F90.0 [facility] [id number] [address] Apr, Asthma exacerbation J45.901 [place] [id number] [place] [address] Apr, Encounter for immunization Z23 [place] [id number] [place] [address] Jan, Encounter for immunization Z23 ; Visit for TB skin test Z11.1 and Physical exam Z00.00 [place] [id number] [place] [address] Jul, Encounter for Nexplanon removal Z30.46 and Insertion of Nexplanon Z30.017 [facility] [id number] [place] [phone] Oct, Dental examination Z01.20 [facility] [id number] [place] [phone] May, [place] [address] [place] [address] May, IMMUNIZATIONS No Known Immunizations SOCIAL HISTORY Never Assessed REASON FOR VISIT TE PLAN OF CARE Activity Details Follow Up prn Reason:hygiene VITAL SIGNS Blood pressure systolic 130 mmHg 2017-08-14 Blood pressure diastolic 76 mmHg 2017-08-14 MEDICATIONS Medication Instructions Dosage Frequency Start Date End Date Duration Status Vyvanse 20 MG Orally Once a day 1 capsule in the morning 24h Active [place] 5-325 MG Orally every 6 hrs 1 tablet as needed 6h 4 days Active Clindamycin HCl 150 MG Orally every 8 hrs 2 capsules 8h Jul, Jul, 5 day(s) Active Singulair 10 MG Orally Once a day 1 tablet in the evening 24h Active Promethazine-Codeine 6.25-10 MG/5ML Orally every 6 hrs 5 ml as needed 6h Jun, Not-Taking Claritin 10 MG Orally Once a day 1 tablet 24h Active Nexplanon 68 MG Subcutaneous placed 07/25/2016 as directed Jul, Active ProAir HFA 108 (90 Base) MCG/ACT Inhalation 4 times a day 2 puffs as needed 6h Apr, Active RESULTS No Results PROCEDURES Procedure Date Ordered Result Body Site SURG REMOVAL ERUPTED TOOTH Aug 14, 2017 INSTRUCTIONS MEDICATIONS ADMINISTERED No Known Medications MEDICAL (GENERAL) HISTORY Type Description Date Surgical History right knee arthroscopy Surgical History left knee arthroscopy
--- OUTSIDE RECORDS SUMMARY | 2019-04-04 13:16 | XMS REPORT ---
Author Author MALINDA SHABAZZ Organization [facility] Address [address] [place] [address] Care Team Providers Care C Programmer Name Role Phone MELE MALINDA Unavailable PROBLEMS Type Condition ICD9-CM Code DTH43-AJ Code Onset Dates Condition Status SNOMED Code Problem ADHD, predominantly inattentive type F90.0 Active 50075822 Problem Asthma exacerbation J45.901 Active 836161945 ALLERGIES Substance Reaction Event Type Date Status Penicillin V Potassium hives Drug Allergy Feb, Active ENCOUNTERS Encounter Location Date Diagnosis [place] [address] [address] Apr, ADHD, predominantly inattentive type F90.0 [facility] [address] [address] Mar, ADHD, predominantly inattentive type F90.0 [facility] [address] [address] Mar, Visit for TB skin test Z11.1 [facility] [address] [address] Mar, ADHD, predominantly inattentive type F90.0 [facility] [address] [address] Mar, ADHD, predominantly inattentive type F90.0 [facility] [address] [address] Feb, Asthma exacerbation J45.901 and ADHD, predominantly inattentive type F90.0 [facility] [id number] [place] [address] Nov, Wheezing R06.2 and Acute nasopharyngitis J00 [facility] [id number] [phone] Jul, Dental caries K02.9 [facility] [id number] [place] [address] Jul, [facility] [id number] [place] [address] Jul, Dental examination Z01.20 [facility] [id number] [place] [address] Jul, Dental infection K04.7 [facility] [id number] [place] [address] Jun, Pharyngitis due to other organism J02.8 [place] [address] [id number] [place] [address] May, [facility] [id number] [place] [address] May, ADHD, predominantly inattentive type F90.0 [facility] [id number] [place] [address] Apr, Asthma exacerbation J45.901 [place] [id number] [place] [phone] 13 Apr, 2017 Encounter for immunization Z23 [place] [id number] [place] [phone] Jan, Encounter for immunization Z23 ; Visit for TB skin test Z11.1 and Physical exam Z00.00 [facility] [address] [place] [address] Jul, Encounter for Nexplanon removal Z30.46 and Insertion of Nexplanon Z30.017 [facility] [address] [phone] Oct, Dental examination Z01.20 [facility] [id number] [place] [phone] May, [facility] [address] [facility] [id number] [place] [address] May, IMMUNIZATIONS No Known Immunizations SOCIAL HISTORY Never Assessed REASON FOR VISIT Establish [facility] PLAN OF CARE Activity Details Follow Up 3 months or as indicated by lab Reason:ADHD VITAL SIGNS Height 70.5 in 2018-03-09 Weight 208 lbs 2018-03-09 Temperature 98.1 degrees Fahrenheit 2018-03-09 Heart Rate 85 bpm 2018-03-09 Respiratory Rate 20 2018-03-09 BMI 29.42 kg/m2 2018-03-09 Blood pressure systolic 110 mmHg 2018-03-09 Blood pressure diastolic 68 mmHg 2018-03-09 MEDICATIONS Medication Instructions Dosage Frequency Start Date End Date Duration Status Singulair 10 MG Orally Once a day 1 tablet in the evening 24h Active Vyvanse 40 MG Orally Once a day 1 capsule in the morning 24h Active Claritin 10 MG Orally Once a day 1 tablet 24h Active Nexplanon 68 MG Subcutaneous placed 07/25/2016 as directed Jul, Active ProAir HFA 108 (90 Base) MCG/ACT Inhalation every 6 hrs 2 puffs as needed 6h Nov, 30 days Active RESULTS No Results PROCEDURES No Known procedures INSTRUCTIONS MEDICATIONS ADMINISTERED No Known Medications MEDICAL (GENERAL) HISTORY Type Description Date Surgical History right knee arthroscopy Surgical History left knee arthroscopy
--- OUTSIDE RECORDS SUMMARY | 2019-04-04 13:16 | XMS REPORT ---
Author Author MARIA GUADALUPE WEINER [facility] Address [address] [place] [address] Care Team Providers Care Audience Development Manager Name Role Phone MARIA GUADALUPE WEINER Unavailable PROBLEMS Type Condition ICD9-CM Code JCJ07-KE Code Onset Dates Condition Status SNOMED Code Problem ADHD, predominantly inattentive type F90.0 Active 06134837 Problem Asthma exacerbation J45.901 Active 006201699 ALLERGIES Substance Reaction Event Type Date Status Penicillin V Potassium hives Drug Allergy Jul, Active ENCOUNTERS Encounter Location Date Diagnosis [facility] [id number] [place] [address] Nov, Wheezing R06.2 and Acute nasopharyngitis J00 [facility] [id number] [place] [phone] Jul, Dental caries K02.9 [facility] [id number] [place] [address] Jul, [facility] [id number] [place] [address] Jul, Dental examination Z01.20 [facility] [id number] [place] [phone] Jul, Dental infection K04.7 [facility] [id number] [place] [address] Jun, Pharyngitis due to other organism J02.8 [facility] [address] [id number] [place] [address] May, [facility] [id number] [place] [address] May, ADHD, predominantly inattentive type F90.0 [facility] [address], [place] [address] Apr, Asthma exacerbation J45.901 [facility] [address] [place] [address] Apr, Encounter for immunization Z23 [place] [id number] [place] [address] Jan, Encounter for immunization Z23 ; Visit for TB skin test Z11.1 and Physical exam Z00.00 [facility] [id number] [place] [address] Jul, Encounter for Nexplanon removal Z30.46 and Insertion of Nexplanon Z30.017 [facility] [id number] [place] [phone] Oct, Dental examination Z01.[address] [facility] [id number] [place] [phone] May, [facility] [address] [place] [phone] May, IMMUNIZATIONS No Known Immunizations SOCIAL HISTORY Never Assessed REASON FOR VISIT referral from walk - in PLAN OF CARE Activity Details Follow Up prn Reason: VITAL SIGNS Blood pressure systolic 130 mmHg 2017-08-11 Blood pressure diastolic 72 mmHg 2017-08-11 MEDICATIONS Medication Instructions Dosage Frequency Start Date End Date Duration Status Singulair 10 MG Orally Once a day 1 tablet in the evening 24h Active Claritin 10 MG Orally Once a day 1 tablet 24h Active ProAir HFA 108 (90 Base) MCG/ACT Inhalation 4 times a day 2 puffs as needed 6h Apr, Active Promethazine-Codeine 6.25-10 MG/5ML Orally every 6 hrs 5 ml as needed 6h Jun, Not-Taking Clindamycin HCl 150 MG Orally every 8 hrs 2 capsules 8h Jul, Jul, 5 day(s) Active Nexplanon 68 MG Subcutaneous placed 07/25/2016 as directed Jul, Active Vyvanse 20 MG Orally Once a day 1 capsule in the morning 24h Active RESULTS No Results PROCEDURES Procedure Date Ordered Result Body Site LTD ORAL EVALUATION - PROBLEM FOCUS Aug 11, 2017 INTRAORL-PERIAPICAL 1 FILM 21204 Aug 11, 2017 BITEWING - SINGLE FILM Aug 11, 2017 INSTRUCTIONS MEDICATIONS ADMINISTERED No Known Medications MEDICAL (GENERAL) HISTORY Type Description Date Surgical History right knee arthroscopy Surgical History left knee arthroscopy
--- OUTSIDE RECORDS SUMMARY | 2019-04-04 13:16 | XMS REPORT ---
Author Author MALINDA SHABAZZ Organization [facility] Address [address] [place] [address] Care Team Providers Care Trapeze Performer Name Role Phone MIGUELITO SHABAZZTA Unavailable PROBLEMS Type Condition ICD9-CM Code NVN03-AF Code Onset Dates Condition Status SNOMED Code Problem ADHD, predominantly inattentive type F90.0 Active 86567567 Problem Asthma exacerbation J45.901 Active 723605156 ALLERGIES No Information ENCOUNTERS Encounter Location Date Diagnosis [facility] [address] [address] Apr, ADHD, predominantly inattentive type F90.0 [facility] [address] [address] Mar, ADHD, predominantly inattentive type F90.0 [facility] [address] [address] Mar, Visit for TB skin test Z11.1 [facility] [address] [address] Mar, ADHD, predominantly inattentive type F90.0 [facility] [address] [address] Mar, ADHD, predominantly inattentive type F90.0 [facility] [address] [address] Feb, Asthma exacerbation J45.901 and ADHD, predominantly inattentive type F90.0 [facility] [address] [address] Nov, Wheezing R06.2 and Acute nasopharyngitis J00 [facility] [address] [id number] Jul, Dental caries K02.9 [facility] [address] [address] Jul, [facility] [address] [place] [address] Jul, Dental examination Z01.20 [facility] [address] [place] [address] Jul, Dental infection K04.7 [facility] [address] [address] Jun, Pharyngitis due to other organism J02.8 [place] [address] [id number] [place] [address] May, [place] [address] [place] [address] May, ADHD, predominantly inattentive type F90.0 [facility] [address] [address] Apr, Asthma exacerbation J45.901 [place] [address] [place] [id number] [place] [address] Apr, Encounter for immunization Z23 [place] [address] [place] [address] Jan, Encounter for immunization Z23 ; Visit for TB skin test Z11.1 and Physical exam Z00.00 [facility] [address] [address] Jul, Encounter for Nexplanon removal Z30.46 and Insertion of Nexplanon Z30.017 [facility] [address] [id number] Oct, Dental examination Z01.20 [facility] [id number] [id number] May, [facility] [address] [address] May, IMMUNIZATIONS No Known Immunizations SOCIAL HISTORY Never Assessed REASON FOR VISIT Controlled Med Refill PLAN OF CARE VITAL SIGNS MEDICATIONS Medication Instructions Dosage Frequency Start Date End Date Duration Status Vyvanse 40 mg Orally Once a day 1 capsule in the morning 24h Mar, Active RESULTS No Results PROCEDURES No Known procedures INSTRUCTIONS MEDICATIONS ADMINISTERED No Known Medications MEDICAL (GENERAL) HISTORY Type Description Date Surgical History right knee arthroscopy Surgical History left knee arthroscopy
--- OUTSIDE RECORDS SUMMARY | 2019-04-04 13:17 | XMS REPORT ---
Author Author YANI COELLO [facility] Address [address] [place] [address] Care Team Providers Care Arc Cutter Plasma Arc Name Role Phone YANI COELLO Unavailable PROBLEMS Type Condition ICD9-CM Code OXZ53-KA Code Onset Dates Condition Status SNOMED Code Problem ADHD, predominantly inattentive type F90.0 Active 91664321 Problem Asthma exacerbation J45.901 Active 420372549 ALLERGIES No Information ENCOUNTERS Encounter Location Date Diagnosis [facility] [address] [address] Nov, Wheezing R06.2 and Acute nasopharyngitis J00 [facility] [address] [id number] Jul, Dental caries K02.9 [place] [address] [address] Jul, [address] [address] Jul, Dental examination Z01.20 [facility] [address] [address] Jul, Dental infection K04.7 [facility] [address] [address] Jun, Pharyngitis due to other organism J02.8 [facility] [address] [id number] [place] [address] May, [facility] [address] [address] May, ADHD, predominantly inattentive type F90.0 [facility] [address] [address] Apr, Asthma exacerbation J45.901 [place] [address] [place] [id number], [place] [address] Apr, Encounter for immunization Z23 [place] [address], [place] [address] Jan, Encounter for immunization Z23 ; Visit for TB skin test Z11.1 and Physical exam Z00.00 [place] [address] [place] [id number], [place] [address] Jul, Encounter for Nexplanon removal Z30.46 and Insertion of Nexplanon Z30.017 [facility] [address] [id number] Oct, Dental examination Z01.20 [facility] [id number] [id number] May, [place] [address] [place] [id number], [place] [address] May, IMMUNIZATIONS Vaccine Route Administration Date Status HEP B (ADULT) IM Intramuscular May 06, 2017 Administered SOCIAL HISTORY Never Assessed REASON FOR VISIT Hep B- 3rd injection PLAN OF CARE VITAL SIGNS MEDICATIONS No Known Medications RESULTS No Results PROCEDURES Procedure Date Ordered Result Body Site HEP B (ADULT) May 06, 2017 SINGLE IMMUNIZATION ADMIN May 06, 2017 INSTRUCTIONS MEDICATIONS ADMINISTERED No Known Medications MEDICAL (GENERAL) HISTORY Type Description Date Surgical History right knee arthroscopy Surgical History left knee arthroscopy
--- OUTSIDE RECORDS SUMMARY | 2019-04-04 13:17 | XMS REPORT | Continuity of Care Document ---
Author Author [facility] Organization [facility] Address Unknown Phone Unavailable Care Team Providers Care Damage Assessor Name Role Phone TOY JENKINS MD PCP Insurance Providers Payer Name Policy Number Subscriber Name Relationship [id number] Shruthi Loco L 01 Advance Directives Directive Response Recorded Date/Time Advance Directives No 12/29/14 8:00am Resuscitation Status Full Code 12/29/14 8:00am Problems No known problems or medical conditions. Medications Medication Dose Route Sig Days/Qty Instructions Order Date Discontinued Date Status Hydrocodone Bit/Acetaminophen 1-2 Each PO EVERY 6 HOURS PRN p 60 Qty 12/29/14 Active Social History Social History Problem Response Recorded Date/Time Alcohol Use Occasionally Uses 12/29/2014 8:00am Recreational Drug Use No 12/29/2014 8:00am Recent Foreign Travel No 12/29/2014 8:00am Smoking Status Current Everyday Smoker 12/29/2014 8:00am Query Response Start Date Stop Date Smoking Status Current Everyday Smoker Hospital Discharge Instructions No hospital discharge instructions. Plan of Care No plan of care. Functional Status No functional status results. Allergies, Adverse Reactions, Alerts Allergen Type Severity Reaction Status Last Updated Penicillins ([id number]) Allergy Unknown HIVES Active 12/22/14 Immunizations No immunization records. Vital Signs Acute Vital Signs Vital Response Date/Time Temperature (Fahrenheit) 97.5 degrees F (97.6 - 99.5) Temperature (Calculated Celsius) 36.75982 degrees C (36.4 - 37.5) Temperature Source Temporal Pulse Rate (adult) 56 bpm (60 - 90) Respiratory Rate 16 bpm (12 - 24) O2 Sat by Pulse Oximetry 98 % (88 - 100) Blood Pressure 123/72 mm Hg Pain Pain Intensity 4 Height (Feet) 5 feet Height (Inches) 11.00 inches Height (Calculated Centimeters) 180.683065 cm Weight (Pounds) 195 pounds Weight (Calculated Grams) 97744.513 gm Weight (Calculated Kilograms) 88.710260 kilograms Calculated BMI 32.45 Results No known relevant diagnostic tests, laboratory data and/or discharge summary. Procedures Procedure Status Date Provider(s) Arthroscopic partial medial meniscectomy completed 12/29/14 STEPHANIE WORRELL MD Encounters Encounter Location Date/Time Registered Surgical Day Care [facility] 12/29/14 6:32am Registered Clinic [facility] 12/22/14 6:06am
--- OUTSIDE RECORDS SUMMARY | 2019-04-04 13:17 | XMS REPORT ---
Author Author MARIETTA ORLANDO Organization [facility] [place] Address [address] [place] [address] Care Team Providers Care Director Automotive Name Role Phone DARION MARIETTA Unavailable PROBLEMS Type Condition ICD9-CM Code HTO70-VX Code Onset Dates Condition Status SNOMED Code Problem ADHD, predominantly inattentive type F90.0 Active 53663412 Problem Asthma exacerbation J45.901 Active 590028643 ALLERGIES No Information ENCOUNTERS Encounter Location Date Diagnosis [facility] [address] [address] Nov, Wheezing R06.2 and Acute nasopharyngitis J00 [facility] [address] [id number] Jul, Dental caries K02.9 [place] [address] [address] Jul, [place] [address] [address] Jul, Dental examination Z01.20 [facility] [address] [address] Jul, Dental infection K04.7 [facility] [address] [address] Jun, Pharyngitis due to other organism J02.8 [facility] [address] [id number] [place] [address] May, [facility] [place] [address] [address] May, ADHD, predominantly inattentive type F90.0 [facility] [address] [place] [id number] [place] [address] Apr, Asthma exacerbation J45.901 [place] [address] [place] [id number] [address] Apr, Encounter for immunization Z23 [place] [address] [address] Jan, Encounter for immunization Z23 ; Visit for TB skin test Z11.1 and Physical exam Z00.00 [place] [address] [place] [id number] [address] Jul, Encounter for Nexplanon removal Z30.46 and Insertion of Nexplanon Z30.017 [facility] [address] [place] [id number] Oct, Dental examination Z01.20 [facility] [id number] [place] [id number] May, [place] [address] [place] [id number] [address] May, IMMUNIZATIONS No Known Immunizations SOCIAL HISTORY Never Assessed REASON FOR VISIT BH intake, Inattention. PLAN OF CARE Activity Details Follow Up prn Reason: VITAL SIGNS MEDICATIONS Medication Instructions Dosage Frequency Start Date End Date Duration Status Nexplanon 68 MG Subcutaneous placed 07/25/2016 as directed Jul, Active Singulair 10 MG Orally Once a day 1 tablet in the evening 24h Active ProAir HFA 108 (90 Base) MCG/ACT Inhalation 4 times a day 2 puffs as needed 6h Apr, Active Claritin 10 MG Orally Once a day 1 tablet 24h Active RESULTS No Results PROCEDURES Procedure Date Ordered Result Body Site Psych diagnostic evaluation, established patient May 25, 2017 INSTRUCTIONS MEDICATIONS ADMINISTERED No Known Medications MEDICAL (GENERAL) HISTORY Type Description Date Surgical History right knee arthroscopy Surgical History left knee arthroscopy
--- OUTSIDE RECORDS SUMMARY | 2019-04-04 13:17 | XMS REPORT | Continuity of Care Document ---
Author Organization Unknown Address Unknown Phone Unavailable Allergies Active Description Code Type Severity Reaction Onset Reported/Identified Relationship to Patient Clinical Status Yes Penicillins [id number] Drug Allergy Unknown HIVES 12/22/2014 Medications There is no data. Problems Date Dx Coded Attending Type Code Diagnosis Diagnosed By 12/29/2014 ANAID LEVINE, STEPHANIE Olsen Ot 717.7 CHONDROMALACIA PATELLAE 12/29/2014 ANAID LEVINE, STEPHANIE Olsen Ot 727.89 SYNOV/TEND/BURSA DIS NEC 09/10/2015 ANAID LEVINE, STEPHANIE Olsen Ot 717.3 09/10/2015 STEPHANIE WORRELL MD Ot V72.84 09/10/2015 STEPHANIE WORRELL MD Ot 717.3 09/10/2015 STEPHANIE WORRELL MD Ot V72.84 12/03/2016 STEPHANIE WORRELL MD Ot 717.3 DERANG MED MENISCUS NEC 12/03/2016 ANAID LEVINE, STEPHANIE Olsen Ot V72.84 EXAM PRE-OPERATIVE NOS 12/03/2016 STEPHANIE WORRELL MD Ot 717.3 DERANG MED MENISCUS NEC 12/03/2016 STEPHANIE WORRELL MD Ot V72.84 EXAM PRE-OPERATIVE NOS Procedures There is no data. Results Test Result Range PDM - PAIN MGMT (PROFILE 3 WITH CONFIRMATION) - 04/05/18 16:48 Creatinine 203.5 mg/dL > or=20.0 pH 7.51 4.5 - 9.0 Oxidant NEGATIVE mcg/mL <200 Amphetamines NEGATIVE ng/mL <500 medMATCH Amphetamines CONSISTENT NRG Benzodiazepines NEGATIVE ng/mL <100 medMATCH Benzodiazepines CONSISTENT NRG Marijuana Metabolite NEGATIVE ng/mL <20 medMATCH Marijuana Metab CONSISTENT NRG Cocaine Metabolite NEGATIVE ng/mL <150 medMATCH Cocaine Metab CONSISTENT NRG Opiates NEGATIVE ng/mL <100 medMATCH Opiates CONSISTENT NRG Oxycodone NEGATIVE ng/mL <100 medMATCH Oxycodone CONSISTENT NRG COMMENT NRG Complete blood count (CBC) with automated white blood cell (WBC) differential - 02/27/19 02:08 Blood leukocytes automated count (number/volume) 12.5 10*3/uL 4.3-11.0 Blood erythrocytes automated count (number/volume) 4.70 10*6/uL 4.35-5.85 Venous blood hemoglobin measurement (mass/volume) 14.0 g/dL 11.5-16.0 Blood hematocrit (volume fraction) 41 % 35-52 Automated erythrocyte mean corpuscular volume 88 [foz_us] 80-99 Automated erythrocyte mean corpuscular hemoglobin (mass per erythrocyte) 30 pg 25-34 Automated erythrocyte mean corpuscular hemoglobin concentration measurement (mass/volume) 34 g/dL 32-36 Automated erythrocyte distribution width ratio 13.5 % 10.0- 14.5 Automated blood platelet count (count/volume) 212 10*3/uL 130-400 Automated blood platelet mean volume measurement 11.5 [foz_us] 7.4-10.4 Automated blood neutrophils/100 leukocytes 50 % 42-75 Automated blood lymphocytes/100 leukocytes 37 % 12-44 Blood monocytes/100 leukocytes 10 % 0-12 Automated blood eosinophils/100 leukocytes 4 % 0-10 Automated blood basophils/100 leukocytes 0 % 0-10 Blood neutrophils automated count (number/volume) 6.2 10*3 1.8-7.8 Blood lymphocytes automated count (number/volume) 4.6 10*3 1.0-4.0 Blood monocytes automated count (number/volume) 1.2 10*3 0.0- 1.0 Automated eosinophil count 0.5 10*3/uL 0.0-0.3 Automated blood basophil count (count/volume) 0.1 10*3/uL 0.0-0.1 Comprehensive metabolic panel - 02/27/19 02:08 Serum or plasma sodium measurement (moles/volume) 140 mmol/L 135-145 Serum or plasma potassium measurement (moles/volume) 3.9 mmol/L 3.6-5.0 Serum or plasma chloride measurement (moles/volume) 107 mmol/L 98-107 Carbon dioxide 21 mmol/L 21-32 Serum or plasma anion gap determination (moles/volume) 12 mmol/L 5-14 Serum or plasma urea nitrogen measurement (mass/volume) 12 mg/dL 7-18 Serum or plasma creatinine measurement (mass/volume) 0.85 mg/dL 0.60-1.30 Serum or plasma urea nitrogen/creatinine mass ratio 14 NRG Serum or plasma creatinine measurement with calculation of estimated glomerular filtration rate > NRG Serum or plasma glucose measurement (mass/volume) 95 mg/dL 70-105 Serum or plasma calcium measurement (mass/volume) 9.2 mg/dL 8.5-10.1 Serum or plasma total bilirubin measurement (mass/volume) 0.3 mg/dL 0.1-1.0 Serum or plasma alkaline phosphatase measurement (enzymatic activity/volume) 62 U/L 40-136 Serum or plasma aspartate aminotransferase measurement (enzymatic activity/volume) 18 U/L 5-34 Serum or plasma alanine aminotransferase measurement (enzymatic activity/volume) 19 U/L 0-55 Serum or plasma protein measurement (mass/volume) 6.5 g/dL 6.4-8.2 Serum or plasma albumin measurement (mass/volume) 4.1 g/dL 3.2-4.5 CALCIUM CORRECTED 9.1 mg/dL 8.5-10.1 Magnesium - 02/27/19 02:08 Magnesium 2.0 mg/dL 1.8-2.4 Serum or plasma C reactive protein measurement (mass/volume) - 02/27/19 02:08 Serum or plasma C reactive protein measurement (mass/volume) 1.06 mg/dL 0.00-0.50 Blood lactic acid measurement (moles/volume) - 02/27/19 02:45 Blood lactic acid measurement (moles/volume) 0.96 mmol/L 0.50- 2.00 Bacterial blood culture - 02/27/19 02:45 Bacterial blood culture NG NRG Bacterial blood culture - 02/27/19 03:21 Bacterial blood culture NG NRG Encounters ACCT No. Visit Date/Time Discharge Status Pt. Type Provider Facility Loc./Unit Complaint [id number] 03/16/2019 10:40:00 03/16/2019 23:59:59 CLS Outpatient MALINDA SHABAZZ [facility] [place] [id number] 04/05/2018 16:40:00 Document Registration [id number] 02/27/2019 02:05:00 02/27/2019 04:00:00 DIS Emergency CYN LEVINE, STACIE Hernandez [facility] [id number] 07/20/2015 18:23:00 07/20/2015 23:59:59 CLS Outpatient LIZETH BURCIAGA DO [facility] QUICK [id number] 12/29/2014 06:32:00 12/29/2014 12:25:00 DIS Outpatient STEPHANIE WORRELL MD [facility] RIGHT MENISCUS TEAR [id number] 12/22/2014 06:06:00 12/22/2014 23:59:59 CLS Outpatient STEPHANIE WORRELL MD [facility] PREOP RIGHT MENISCUS TEAR
--- OUTSIDE RECORDS SUMMARY | 2019-04-04 13:17 | XMS REPORT ---
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 Name Role Phone MARIA GUADALUPE WEINER Unavailable PROBLEMS Type Condition ICD9-CM Code DLA18-UD Code Onset Dates Condition Status SNOMED Code Problem ADHD, predominantly inattentive type F90.0 Active 98720344 Problem Asthma exacerbation J45.901 Active 578445779 ALLERGIES No Information ENCOUNTERS Encounter Location Date Diagnosis [facility] [address] [id number] [place] [address] Nov, Wheezing R06.2 and Acute nasopharyngitis J00 [facility] [id number] [place] [id number] Jul, Dental caries K02.9 [place] [address] [id number] [place] [address] Jul, [facility] [address] [id number] [place] [address] Jul, Dental examination Z01.20 [facility] [address] [id number] [place] [address] Jul, Dental infection K04.7 [facility] [id number] [place] [address] Jun, Pharyngitis due to other organism J02.8 [facility] [address] [id number] [place] [address] May, [facility] [id number] [place] [address] May, ADHD, predominantly inattentive 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 [facility] [id number] [address] 23 Apr, 2017 Asthma exacerbation J45.901 [facility] [address] [id number] [place] [address] 13 Apr, 2017 Encounter for immunization Z23 [place] [address] [place] [id number] [place] [address] Jan, Encounter for immunization Z23 ; Visit for TB skin test Z11.1 and Physical exam Z00.00 [facility] [address] [place] [address] [id number] [place] [address] Jul, Encounter for Nexplanon removal Z30.46 and Insertion of Nexplanon Z30.017 [facility] [address] [id number] Oct, Dental examination Z01.20 [facility] [id number] [id number] May, [facility] [address] [place] [address] May, IMMUNIZATIONS No Known Immunizations SOCIAL HISTORY Never Assessed REASON FOR VISIT Infected tooth PLAN OF CARE VITAL SIGNS MEDICATIONS No Known Medications RESULTS No Results PROCEDURES No Known procedures INSTRUCTIONS MEDICATIONS ADMINISTERED No Known Medications MEDICAL (GENERAL) HISTORY Type Description Date Surgical History right knee arthroscopy Surgical History left knee arthroscopy
--- OUTSIDE RECORDS SUMMARY | 2019-04-04 13:17 | XMS REPORT ---
Author Author CRESCENCIO AGGARWAL Organization [facility] Address [address] [place] [address] Care Team Providers Care Claims Collector Name Role Phone CRESCENCIO AGGARWAL Unavailable PROBLEMS Type Condition ICD9-CM Code [id number] Code Onset Dates Condition Status SNOMED Code Problem ADHD, predominantly inattentive type F90.0 Active 99989168 Problem Asthma exacerbation J45.901 Active 395772269 ALLERGIES Substance Reaction Event Type Date Status Penicillin V Potassium Unknown Drug Allergy Apr, Active ENCOUNTERS Encounter Location Date Diagnosis [facility] [address] [place] [phone] Nov, Wheezing R06.2 and Acute nasopharyngitis J00 [facility] [id number] [place] [phone] Jul, Dental caries K02.9 [id number] [place] [phone] Jul, [facility] [id number] [place] [phone] Jul, Dental examination Z01.20 [facility] [id number] [place] [phone] Jul, Dental infection K04.7 [facility] [id number] [place] [phone] Jun, Pharyngitis due to other organism J02.8 [facility] [address] [id number] [place] [address] May, [facility] [address] [place] [phone] May, ADHD, predominantly inattentive type F90.0 [facility] [id number] [address] Apr, Asthma exacerbation J45.901 [facility] [address] [place] [phone] 13 Apr, 2017 Encounter for immunization Z23 [facility] [address] [place] [phone] Jan, Encounter for immunization Z23 ; Visit for TB skin test Z11.1 and Physical exam Z00.00 [facility] [address] [place] [phone] Jul, Encounter for Nexplanon removal Z30.46 and Insertion of Nexplanon Z30.017 [facility] [id number] [place] [phone] Oct, Dental examination Z01.20 [facility] [id number] [place] [phone] May, [facility] [address] [place] [phone] May, IMMUNIZATIONS No Known Immunizations SOCIAL HISTORY Never Assessed REASON FOR VISIT Cough- left inhaler on vacation JStrasserRN PLAN OF CARE VITAL SIGNS Height 70.5 in 2017-05-16 Weight 202.8 lbs 2017-05-16 Temperature 98.3 degrees Fahrenheit 2017-05-16 Heart Rate 80 bpm 2017-05-16 Respiratory Rate 20 2017-05-16 BMI 28.68 kg/m2 2017-05-16 Blood pressure systolic 120 mmHg 2017-05-16 Blood pressure diastolic 78 mmHg 2017-05-16 MEDICATIONS Medication Instructions Dosage Frequency Start Date End Date Duration Status Singulair 10 MG Orally Once a day 1 tablet in the evening 24h Active Nexplanon 68 MG Subcutaneous placed 07/25/2016 as directed Jul, Active ProAir HFA 108 (90 Base) MCG/ACT Inhalation 4 times a day 2 puffs as needed 6h Apr, Active PredniSONE 20 mg Orally Once a day 2 tablets 24h Apr, Apr, 05 days Active Claritin 10 MG Orally Once a day 1 tablet 24h Active RESULTS No Results PROCEDURES No Known procedures INSTRUCTIONS MEDICATIONS ADMINISTERED No Known Medications MEDICAL (GENERAL) HISTORY Type Description Date Surgical History right knee arthroscopy Surgical History left knee arthroscopy
--- OUTSIDE RECORDS SUMMARY | 2019-04-04 13:17 | XMS REPORT ---
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 Name Role Phone DAKSHA BALTAZAR Unavailable PROBLEMS Type Condition ICD9-CM Code [id number] Code Onset Dates Condition Status SNOMED Code Problem ADHD, predominantly inattentive type F90.0 Active [id number] Problem Asthma exacerbation J45.901 Active 197436972 ALLERGIES Substance Reaction Event Type Date Status Penicillin V Potassium Unknown Drug Allergy Jul, Active ENCOUNTERS Encounter Location Date Diagnosis [facility] [id number] [place] [phone] Nov, Wheezing R06.2 and Acute nasopharyngitis J00 [facility] [id number] [place] [phone] Jul, Dental caries K02.9 [facility] [id number] [place] [phone] Jul, [facility] [id number] [place] [phone] Jul, Dental examination Z01.20 [facility] [id number] [place] [phone] Jul, Dental infection K04.7 [facility] [id number] [place] [phone] Jun, Pharyngitis due to other organism J02.8 [facility] [address] [id number] [place] [address] May, [facility] [id number] [place] [phone] May, ADHD, predominantly inattentive 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 [facility] [address] [address] Apr, Asthma exacerbation J45.901 [facility] [address] [place] [phone] Apr, Encounter for immunization Z23 [facility] [id number] [place] [phone] Jan, Encounter for immunization Z23 ; Visit for TB skin test Z11.1 and Physical exam Z00.00 [facility] [id number] [place] [phone] Jul, Encounter for Nexplanon removal Z30.46 and Insertion of Nexplanon Z30.017 [facility] [id number] [place] [phone] Oct, Dental examination Z01.20 [facility] [id number] [place] [phone] May, [facility] [address] [place] [phone] May, IMMUNIZATIONS No Known Immunizations SOCIAL HISTORY Never Assessed REASON FOR VISIT tooth infection-cracked tooth 2 weeks ago- has made R. side of mouth sore Christopher gómez MA, called dentist but cannot get in until after [place]- states they told h er she probably needs an antibiotic PLAN OF CARE Activity Details Follow Up see dentist SVITLANA Reason: VITAL SIGNS Height 70.5 in 2017-08-11 Weight 200.8 lbs 2017-08-11 Temperature 98.7 degrees Fahrenheit 2017-08-11 Heart Rate 80 bpm 2017-08-11 Respiratory Rate 20 2017-08-11 BMI 28.40 kg/m2 2017-08-11 Blood pressure systolic 130 mmHg 2017-08-11 Blood pressure diastolic 72 mmHg 2017-08-11 MEDICATIONS Medication Instructions Dosage Frequency Start Date End Date Duration Status Singulair 10 MG Orally Once a day 1 tablet in the evening 24h Active Claritin 10 MG Orally Once a day 1 tablet 24h Active Clindamycin HCl 150 MG Orally every 8 hrs 2 capsules 8h Jul, Jul, 5 day(s) Active Vyvanse 20 MG Orally Once a day 1 capsule in the morning 24h Active ProAir HFA 108 (90 Base) MCG/ACT Inhalation 4 times a day 2 puffs as needed 6h Apr, Active Promethazine-Codeine 6.25-10 MG/5ML Orally every 6 hrs 5 ml as needed 6h Jun, Not-Taking Nexplanon 68 MG Subcutaneous placed 07/25/2016 as directed Jul, Active RESULTS No Results PROCEDURES No Known procedures INSTRUCTIONS MEDICATIONS ADMINISTERED No Known Medications MEDICAL (GENERAL) HISTORY Type Description Date Surgical History right knee arthroscopy Surgical History left knee arthroscopy
--- OUTSIDE RECORDS SUMMARY | 2019-04-04 13:19 | XMS REPORT | Continuity of Care Document ---
Author Organization Unknown Address Unknown Phone Unavailable Allergies Active Description Code Type Severity Reaction Onset Reported/Identified Relationship to Patient Clinical Status Yes Penicillins [id number] Drug Allergy Unknown HIVES 12/22/2014 Medications There [...] Status Pt. Type Provider Facility Loc./Unit Complaint [id number] 03/16/2019 10:40:00 03/16/2019 23:59:59 CLS Outpatient MALINDA SHABAZZ [facility] [id number] 04/05/2018 16:40:00 Document Registration [id number] 02/27/2019 02:05:00 02/27/2019 04:00:00 DIS Emergency CYN LEVINE, STACIE Hernandez [facility] [id number] 07/20/2015 18:23:00 07/20/2015 23:59:59 CLS Outpatient LIZETH BURCIAGA DO [facility] QUICK [id number] 12/29/2014 06:32:00 12/29/2014 12:25:00 DIS Outpatient STEPHANIE WORRELL MD Via [facility] RIGHT MENISCUS TEAR [id number] 12/22/2014 06:06:00 12/22/2014 23:59:59 CLS Outpatient STEPHANIE WORRELL MD [facility] PREOP RIGHT MENISCUS TEAR
--- NOTE | 2019-04-04 15:42 | Diagnostic Imaging Report ---
INDICATION: Intubation. COMPARISON: None available. FINDINGS AND IMPRESSION: 1. Enteric tube has its side hole just beyond the GE junction and tip in the fundus. 2. Nonobstructive bowel gas pattern. Dictated by: Dictated on workstation # [id number]
== END 2019-04-04 12:55 | disposition short-term general hospital (02) ==
LOC: MERGE 10:42 → ER FS 10:44 → EDBD 10:44 → ER FS 11:32 → UNDOADMIN 11:34 → ICU 11:34 → ER FS 12:55
DX: J96.90 Respiratory failure, unspecified, unspecified whether with hypoxia or hypercapnia (principal); E87.2 Acidosis; D72.829 Elevated white blood cell count, unspecified; J45.902 Unspecified asthma with status asthmaticus; F17.210 Nicotine dependence, cigarettes, uncomplicated; Z88.0 Allergy status to penicillin
CPT/HCPCS: 31500; 36415; 51702; 71045; 74018; 80053; 80306; 80320; 81000; 82805; 83605; 83690; 83735; 83880; 84484; 84703; 85007; 85027; 85610; 85730; 87040